=== PATIENT | male | born 1980 | race Caucasian/White ===

== ENCOUNTER 2017-03-23 22:06 | Emergency (ER) | payer MEDICAID ==
[~2017-03-23] VITALS: Ht 190.5 cm; Wt 126.1 kg
[2017-03-23 22:36] VITALS: BP 113/63
--- NOTE | 2017-03-24 01:40 | NUR ---
PATIENT TO ER BED 5.
--- NOTE | 2017-03-24 01:50 | NUR ---
PATIENT BEING EVALUATED BY DR. DELGADILLO.
[2017-03-24] MEDS ORDERED: KETOROLAC 60 MG/2 ML VIAL IM ONE (02:50)
[2017-03-24 03:15] VITALS: BP 113/63
== END 2017-03-24 03:59 | disposition home or self-care (01) ==
LOC: MED 22:06
DX: K08.89 Other specified disorders of teeth and supporting structures (principal); F17.210 Nicotine dependence, cigarettes, uncomplicated
CPT/HCPCS: 96372; 99283; J1885

== ENCOUNTER 2020-06-19 09:21 | Emergency (ER) | payer MEDICAID ==
[~2020-06-19] VITALS: Ht 200.7 cm; Wt 110.2 kg
[2020-06-19 09:23] VITALS: BP 129/82
--- NOTE | 2020-06-19 09:34 | NUR ---
PATIENT AMBULATED TO BED 5.
--- NOTE | 2020-06-19 09:43 | NUR ---
C/O RASH TO MOUTH, BOTH ARMS X 1 WEEK.PT AOX4, AFIBRILE , AMBULATORY WITH STEADY GAIT, PINK PALPEBRAL CONJUNCTIVA ,ANICTERIC SCLERA , SCE , FLAT SOFT ABDOMEN. MED HX:DENIES
--- NOTE | 2020-06-19 10:15 | NUR ---
PT COMFORTABLE IN BED SIDE RAILS UP AND LOCK.
--- NOTE | 2020-06-19 10:23 | NUR ---
ALISON [phone]
--- NOTE | 2020-06-19 10:30 | NUR ---
DR DELGADILLO AT BEDSIDE EVALUATING PT.
[2020-06-19 10:58] VITALS: BP 129/82
--- NOTE | 2020-06-19 11:13 | NUR ---
Patient discharged with v/s stable. Written and verbal after care instructions given and explained regarding cellulitis . Patient alert, oriented and verbalized understanding of instructions. Ambulatory with steady gait. All questions addressed prior to discharge. ID band removed. Patient advised to follow up with PMD. Rx of keflex given. Patient educated on indication of medication including possible reaction and side effects. Opportunity to ask questions provided and answered.Pt accompanied by sister valerie.
== END 2020-06-19 11:13 | disposition home or self-care (01) ==
LOC: MED 09:21
DX: L03.211 Cellulitis of face (principal); F17.210 Nicotine dependence, cigarettes, uncomplicated
CPT/HCPCS: 99283

== ENCOUNTER 2021-03-06 15:59 | Emergency (ER) | payer MEDICAID ==
[~2021-03-06] VITALS: Ht 175.3 cm; Wt 122.5 kg
[2021-03-06 16:04] VITALS: BP 127/74
--- NOTE | 2021-03-06 16:09 | NUR ---
PT AMBULATED TO BED 03, SISTER AT BEDSIDE
--- NOTE | 2021-03-06 16:13 | NUR ---
DR VILLALTA AT BEDSIDE EXAMINING PT
--- NOTE | 2021-03-06 16:15 | NUR ---
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 NAIL IS NO LONGER IN FOOT, NO BLEEDING OR DISCHARGE AT THIS TIME. PT STATES HE DOESNT KNOW HIS LAST TDAP SHOT. DENIES N/V/D; SKIN IS PINK/WARM/DRY; AAOX4 AMBULATES WITH ASSIST; LUNGS CLEAR BL; HR EVEN AND REGULAR; PT DENIES ANY FEVER, CP, SOB, OR COUGH AT THIS TIME; PATIENT STATES PAIN OF 5/10 AT THIS TIME; VSS; PATIENT POSITIONED FOR COMFORT; HOB ELEVATED; BEDRAILS UP X2; BED DOWN. ER MD MADE AWARE OF PT STATUS. PMH: BIPOLAR, SCHIZOPHRENIA NKA MED: TRAZADONE, BANOPHEN, DIVALPROEX
--- NOTE | 2021-03-06 16:16 | NUR ---
x ray technologist at bedside.
[2021-03-06] MEDS ORDERED: BACITRACIN OINT 500 UNITS/GM PKT TP ONE ×2 (16:20→16:24)
[2021-03-06] MEDS ORDERED: CEPH-588 PO (16:31)
[2021-03-06 16:43] VITALS: BP 127/74
--- NOTE | 2021-03-06 16:43 | NUR ---
Patient discharged with v/s stable. Written and verbal after care instructions given and explained. Patient alert, oriented and verbalized understanding of instructions. Ambulatory with to car. All questions addressed prior to discharge. ID band removed. Patient advised to follow up with PMD. Rx of CEPHALEXIN given. Patient educated on indication of medication including possible reaction and side effects. Opportunity to ask questions provided and answered.
== END 2021-03-06 16:41 | disposition home or self-care (01) ==
LOC: MED 15:59
DX: S91.331A Puncture wound without foreign body, right foot, initial encounter (principal); W45.0XXS Nail entering through skin, sequela; Y93.89 Activity, other specified; Y92.89 Other specified places as the place of occurrence of the external cause; Y99.8 Other external cause status
CPT/HCPCS: 73630; 90471; 90715; 99283

== ENCOUNTER 2021-06-10 11:53 | Emergency (ER) | payer MEDICAID ==
[~2021-06-10] VITALS: Ht 193 cm; Wt 122.5 kg
[~2021-06-10 11:53] MED LIST: CEPH-588 PO
[2021-06-10 12:11] VITALS: BP 148/72
[2021-06-10] MEDS ORDERED: IBUP-2213 PO (13:14)
[2021-06-10] MEDS ORDERED: IBUPROFEN 600 MG TAB PO ONE (13:15)
[2021-06-10 13:42] VITALS: BP 148/72
--- NOTE | 2021-06-10 13:49 | NUR ---
no nursing interventions given
--- NOTE | 2021-06-10 15:45 | NUR ---
CALLED. NO SHOW Addendum: 06/10/21 at 1547 by [email or web address] PRATIBHA
[2021-06-11] MEDS ORDERED: AMOX-1000 PO (15:14)
== END 2021-06-10 13:49 | disposition home or self-care (01) ==
LOC: MED 11:53
DX: S60.021A Contusion of right index finger without damage to nail, initial encounter (principal); R03.0 Elevated blood-pressure reading, without diagnosis of hypertension; F32.9 Major depressive disorder, single episode, unspecified; Z79.899 Other long term (current) drug therapy; W22.01XA Walked into wall, initial encounter; Y93.89 Activity, other specified; Y92.89 Other specified places as the place of occurrence of the external cause; Y99.8 Other external cause status
CPT/HCPCS: 73140; 99284

== ENCOUNTER 2021-06-11 13:06 | Emergency (ER) | payer MEDICAID ==
[~2021-06-11] VITALS: Ht 190.5 cm; Wt 122.5 kg
[~2021-06-11 13:06] MED LIST changes: +IBUP-2213 PO
[2021-06-11 13:15] VITALS: BP 127/71
--- NOTE | 2021-06-11 13:21 | NUR ---
PT SENT TO LOBBY TO WAIT FOR AVAILABLE BED OR MSE.
[2021-06-11] MEDS ORDERED: AMOX-1000 PO (15:14)
[2021-06-11 15:27] VITALS: BP 127/71
--- NOTE | 2021-06-11 15:27 | NUR ---
Patient discharged with v/s stable. Written and verbal after care instructions given and explained. Patient alert, oriented and verbalized understanding of instructions. Ambulatory with to car. All questions addressed prior to discharge. ID band removed. Patient advised to follow up with PMD. Rx of AMOXICILLIN/POTASSIUM CLAV given. Patient educated on indication of medication including possible reaction and side effects. Opportunity to ask questions provided and answered.
== END 2021-06-11 15:27 | disposition home or self-care (01) ==
LOC: MED 13:06
DX: L03.011 Cellulitis of right finger (principal)
CPT/HCPCS: 26010; 90471; 90715; 99283